=== PATIENT | female | born 1960 | race Caucasian/White ===

== ENCOUNTER 2023-09-13 12:30 | Emergency (ER) | payer OTHER ==
[2023-09-13 12:43] VITALS: BP 147/74; PULSE 78; RESP 20; TEMP 98.1; BMI 22.6
[2023-09-13] MEDS ORDERED: IBUPROFEN 400 MG TABLET (FP) PO ONE (12:43)
[2023-09-13] MEDS: IBUPROFEN 400 MG TABLET (FP) PO ONE (12:46)
== END 2023-09-13 13:34 | disposition home or self-care (01) ==
LOC: FER 12:30
DX: S93.431A Sprain of tibiofibular ligament of right ankle, initial encounter (principal); X50.9XXA Other and unspecified overexertion or strenuous movements or postures, initial encounter; Y92.039 Unspecified place in apartment as the place of occurrence of the external cause
CPT/HCPCS: 73610-TC-RT-FY; 73630-TC-RT-FY; 99283-25